=== PATIENT | female | born 1980 | race Caucasian/White ===

== ENCOUNTER 2018-03-17 18:13 | Emergency (ER) | payer OTHER ==
[2018-03-17 18:52] VITALS: BP 145/74
--- NOTE | 2018-03-17 19:17 | ED Physician Documentation ---
PD HPI UPPER EXT INJURY - Stated complaint Stated Complaint: FINGER LAC - Chief complaint Chief Complaint: Laceration - History obtained from History obtained from: Patient - History of Present Illness Location: Left, Finger (little finger at DIP joint) Type of injury: Laceration (cutting food for dinner, and got laceration to left little finger at the DIP joing area. No weakness. It was still bleeding some after direct pressure. No numbness.) Where injury occurred: Home Timing - onset: How many hours ago (1), Today Timing - details: Abrupt onset Worsened by: Palpating. No: Moving Associated symptoms: No: Weakness, Numbness Similar symptoms before: Has not had sx before Recently seen: Not recently seen Review of Systems Neurologic: denies: Focal weakness, Numbness PD PAST MEDICAL HISTORY - Past Medical History Cardiovascular: None Endocrine/Autoimmune: None - Allergies Allergies/Adverse Reactions: Allergies Allergy/AdvReac Type Severity Reaction Status Date / Time Penicillins Allergy Unknown Verified 03/17/18 18:52 PD ED PE NORMAL - Vitals Vital signs reviewed: Yes - General General: Alert and oriented X 3, No acute distress, Well developed/nourished - Derm Derm: Normal color, Warm and dry - Extremities Extremities: Other (left little finger with laceration palmar DIP area, no FB and good flexion, normal sensation.) Results - Vitals Vitals: Vital Signs - 24 hr 03/17/18 18:50 Temperature 36.3 C L Heart Rate 52 L Respiratory 16 Rate Blood Pressure 145/74 H O2 Saturation 98 Oxygen O2 Source Room air Procedures - Laceration (location) left little finger Length in cm: 1 Wound type: Linear, Into subcut fat, Clean Neurovascular status: Sensory intact, Motor intact, Vascular intact Tendon involvement: Tendon intact Anesthesia: Lidocaine 1% Skin layer closure: Nylon, Interrupted, Size #-0 - enter number (4), Sutures - e nter # (4) Other: Patient tolerated well, No complications, Neurovascular intact, Dressing applied, Tetanus UTD (under 10 years) Complexity: Simple PD MEDICAL DECISION MAKING - ED course Complexity details: considered differential (it opens with finger extension, and still some bleeding, so opted for sutures. No FB seen and has good finger flexion. ), d/w patient Departure - Departure Disposition: 01 Home, Self Care Clinical Impression: Finger laceration Qualifiers: Encounter type: initial encounter Finger: little finger Damage to nail status: without damage Foreign body presence: without foreign body Laterality: left Qualified Code(s): S61.217A - Laceration without foreign body of left little finger without damage to nail, initial encounter Condition: Stable Record reviewed to determine appropriate education?: Yes Instructions: ED Laceration Hand Comments: It is okay to wash and shower. Clean off the wound twice a day with soap and water, or peroxide and water. Apply some antibiotic ointment to it to keep it moist. Also to watch for signs of infection such as purulence, redness or increasing pain. Return to your primary care or the ER at the specified time for suture removal. Suture removal 8-10 days. Discharge Date/Time: 03/17/18 19:56
[2018-03-17] MEDS ORDERED: LIDOCAINE 1% 2 ML VIAL SUBQ STA ×2 (19:24→19:33)
[2018-03-17] MEDS ORDERED: BACITRACIN OINT TOP ONE (19:51)
== END 2018-03-17 19:56 | disposition home or self-care (01) ==
LOC: ED 18:13
DX: S61.217A Laceration without foreign body of left little finger without damage to nail, initial encounter (principal); W45.8XXA Other foreign body or object entering through skin, initial encounter
CPT/HCPCS: 12001; 99282; 99283; A9270